=== PATIENT | female | born 1935 | race Caucasian/White ===

== ENCOUNTER → 2020-11-27 | Outpatient (CLI) | payer MEDICARE, OTHER | LOC: HEART 5 08:30 | DX: R07.9 Chest pain, unspecified (principal) | CPT/HCPCS: 78452; 93306; A9502; J2785 ==

== ENCOUNTER → 2020-12-28 | Outpatient (CLI) | payer MEDICARE, OTHER ==
[~2020-12-28] MED LIST: CLOPIDOGREL75 MG PO; GLIPIZIDE ER5 MG PO; JANUMET XR 50-1 EACH PO; LISINOPRIL5 MG PO; MECLIZINE HCL25 MG PO; PRAVASTATIN SOD40 MG PO; PROTONIX40 MG PO; ROPINIROLE HCL2 MG PO; TYLENOL 8 HOUR650 MG PO
[2020-12-28 12:24] LABS: HEMOGLOBIN 12.3 gm/dl (12.3-15.3); RED BLOOD COUNT 4.32 M/UL (4.00-5.10); WHITE BLOOD COUNT 7.7 K/UL (4.5-11.0)
[2020-12-28 12:48] LABS: BUN/CREATININE RATIO 13 (0-10)
== END ==
LOC: OPSV2 11:00 → EDSTATUS 11:00 → OPSV2 11:35
PROVIDERS: Orthopaedic Surgery
DX: Z01.818 Encounter for other preprocedural examination (principal); M17.12 Unilateral primary osteoarthritis, left knee
CPT/HCPCS: 36415; 71046; 80048; 83036; 85025

== ENCOUNTER 2021-01-11 07:42 | Day surgery (SDC) | payer MEDICARE, OTHER ==
[~2021-01-11] VITALS: Ht 157.5 cm; Wt 75.3 kg
[2021-01-11 08:49] LABS: BUN/CREATININE RATIO 19 (0-10)
[2021-01-11] MEDS ORDERED: CYCLOBENZAPRINE10 MG PO (14:30)
[2021-01-11] MEDS ORDERED: ENDOCET 7.5-321 EACH PO (14:30)
[2021-01-11] MEDS ORDERED: ZOFRAN4 MG PO (14:30)
[2021-01-11] MEDS ORDERED: ASPIRIN EC81 MG PO (14:30)
--- NOTE | 2021-01-12 06:22 | NUR ---
patient had not passed any urine during shift and after using the bladder scanner it revealed she had +999ml of urine. provider notified and he ordered a straight cath. the straight cath removed 750 ml of urine.
[2021-01-12 06:26] LABS: RED BLOOD COUNT 3.97 M/UL (4.00-5.10); WHITE BLOOD COUNT 5.1 K/UL (4.5-11.0)
[2021-01-12 06:46] LABS: BUN/CREATININE RATIO 22 (0-10)
--- NOTE | 2021-01-12 15:31 | NUR ---
PATIENT USED INCENIVE SPIROMETER Q1H WHILE AWAKE BEST DOCUMENTED AT 1200 PT NEEDS ENCOURAGMENT TO BE COMPOLAINT W/ IS PT EDUCATED ON POLARICE AND TO WEAR CONT TOLERATED
== END 2021-01-12 15:13 | disposition home or self-care (01) ==
LOC: OR 07:42 → EDSTATUS 12:15 → OR 12:15 → M/S 17:39 → OR 01-12 15:13
PROVIDERS: Orthopaedic Surgery
DX: M17.11 Unilateral primary osteoarthritis, right knee (principal); G89.18 Other acute postprocedural pain; I10 Essential (primary) hypertension; E78.5 Hyperlipidemia, unspecified; K21.9 Gastro-esophageal reflux disease without esophagitis; E11.9 Type 2 diabetes mellitus without complications; G25.81 Restless legs syndrome; Z86.73 Personal history of transient ischemic attack (TIA), and cerebral infarction without residual deficits; Z88.0 Allergy status to penicillin; Z79.02 Long term (current) use of antithrombotics/antiplatelets; Z79.84 Long term (current) use of oral hypoglycemic drugs; Z79.899 Other long term (current) drug therapy; Z20.822 Contact with and (suspected) exposure to COVID-19
CPT/HCPCS: 36415; 73560; 80048; 82962; 85027; 97110-GP-CQ; 97116-GP-CQ; 97161; 97166; C1713; C1776; J0690; J1100; J2001; J2270; J2405; J2704; J2710; J2795; J3010; J3370; J7030; J7120